=== PATIENT | male | born 1945 | race Hispanic/Latino ===

== ENCOUNTER 2020-10-19 19:07 | Emergency (ER) | payer SELFPAY ==
[~2020-10-19] VITALS: Ht 170.2 cm; Wt 81.2 kg
[2020-10-19 20:34] LABS: BASOPHILS % 0.3 % (0.0-1.0); EOSINOPHILS # (AUTO) 0.1 (0.0-0.4); EOSINOPHILS % 0.4 % (0.0-6.0); HEMATOCRIT 32.3 % (38.2-49.6); HEMOGLOBIN 10.3 g/dL (14.0-18.0); LYMPHOCYTES # (AUTO) 1.4 (1.0-3.2); LYMPHOCYTES % 10.3 % (18.0-39.1); MEAN CORPUSCULAR HEMOGLOBIN 24.8 pg (28-32); MEAN CORPUSCULAR HGB CONC 31.9 g/dL (31-35); MEAN CORPUSCULAR VOLUME 77.6 fL (81-99); MONOCYTES # (AUTO) 2.1 (0.2-0.8); MONOCYTES % 15.8 % (4.4-11.3); NEUTROPHILS # (AUTO) 9.8 (2.1-6.9); NEUTROPHILS % 72.5 % (38.7-80.0); PLATELET COUNT 509 x10e3/uL (140-360); RED BLOOD COUNT 4.16 x10e6/uL (4.3-5.7); RED CELL DISTRIBUTION WIDTH 14.8 % (11.7-14.4)
[2020-10-19 20:57] LABS: ALANINE AMINOTRANSFERASE 17 IU/L (0-55); ALBUMIN 2.6 g/dL (3.5-5.0); ALBUMIN/GLOBULIN RATIO 0.5 (0.8-2.0); ALKALINE PHOSPHATASE 100 IU/L (40-150); AMYLASE 21 U/L (25-125); ANION GAP 16.9 mmol/L (8-16); BLOOD UREA NITROGEN 12 mg/dL (7-26); BUN/CREATININE RATIO 15 (6-25); CARBON DIOXIDE 20 mmol/L (22-29); CHLORIDE 99 mmol/L (98-107); CREATININE, SERUM 0.82 mg/dL (0.72-1.25); EST GLOMERULAR FILTRATION RATE > 60 ML/MIN (60-); GLUCOSE 316 mg/dL (74-118); LIPASE 6 U/L (8-78); POTASSIUM 3.9 mmol/L (3.5-5.1); SODIUM 132 mmol/L (136-145)
[2020-10-19] MEDS ORDERED: SODIUM CHLORIDE 0.9% 50ML 50 ML ONE (21:21)
[2020-10-19] MEDS ORDERED: IOPAMIDOL 370 MG/ML 200 ML INFUS..BTL INJ ONE (21:21)
[2020-10-19] MEDS ORDERED: MORPHINE SULFATE INJ 2 MG/ML SYR IV STA (22:30)
[2020-10-19] MEDS ORDERED: CEFEPIME HCL 1 GM VIAL IV ONE (22:30)
[2020-10-19] MEDS ORDERED: ONDANSETRON HCL INJ 2MG/ML 2ML 2 MG/ML VIAL IV STA (22:30)
[2020-10-19] MEDS ORDERED: METRONIDAZOLE 500MG/NS 100ML 100 ML IV ONE (22:30)
[2020-10-19] MEDS ORDERED: INSULIN REGULAR, HUMAN 100 UNIT/1 ML 3ML VIAL SQ ONE (22:45)
== END 2020-10-20 01:10 | disposition other institution (70) ==
LOC: ER 20:09
DX: K61.1 Rectal abscess (principal); E11.65 Type 2 diabetes mellitus with hyperglycemia; Z20.822 Contact with and (suspected) exposure to COVID-19
CPT/HCPCS: 36415; 74177; 80053; 82150; 82948; 83690; 85025; 87040; 99284; J0692; J2270; J2405; Q9967; U0002

== ENCOUNTER 2022-04-22 12:18 | Inpatient (IN) | payer SELFPAY ==
[~2022-04-22] VITALS: Ht 170.2 cm; Wt 90.4 kg
[2022-04-22] VITALS (22 sets, daily range): BP systolic 92–118; BP diastolic 45–63
[2022-04-22] MEDS ORDERED: SODIUM CHLORIDE 0.9% 250ML 250 ML IV ONE (15:15)
[2022-04-22] MEDS ORDERED: ASPIRIN 81 MG CHEW TAB PO ONE (15:15)
[2022-04-22] MEDS: Morphine 4mg INJECTION 4 MG/ML INJ IV PRN (15:33)
[2022-04-22 15:58] LABS: BASOPHILS % 0.4 % (0.0-1.0); EOSINOPHILS # (AUTO) 0.1 (0.0-0.4); EOSINOPHILS % 1.5 % (0.0-6.0); LYMPHOCYTES % 21.1 % (18.0-39.1); MEAN CORPUSCULAR HEMOGLOBIN 23.7 pg (28-32); MEAN CORPUSCULAR HGB CONC 28.6 g/dL (31-35); MONOCYTES # (AUTO) 0.9 (0.2-0.8); MONOCYTES % 9.8 % (4.4-11.3); NEUTROPHILS # (AUTO) 6.3 (2.1-6.9); NEUTROPHILS % 66.9 % (38.7-80.0); PLATELET COUNT 359 x10e3/uL (140-360); RED BLOOD COUNT 1.94 x10e6/uL (4.3-5.7); RED CELL DISTRIBUTION WIDTH 15.5 % (11.7-14.4)
[2022-04-22 16:03] LABS: HEMOGLOBIN 4.6 g/dL (14.0-18.0)
[2022-04-22 16:04] LABS: HEMATOCRIT 16.1 % (38.2-49.6)
[2022-04-22 16:19] LABS: ALBUMIN 3.2 g/dL (3.5-5.0); ANION GAP 14.2 mmol/L (8-16); CALCIUM 8.4 mg/dL (8.4-10.2); CREATININE, SERUM 1.06 mg/dL (0.72-1.25); POTASSIUM 4.2 mmol/L (3.5-5.1)
[2022-04-22 16:25] LABS: CREATINE KINASE MB 1.9 ng/mL (0-5.0)
[2022-04-22] MEDS ORDERED: LIPITOR20 MG PO (16:39)
[2022-04-22] MEDS ORDERED: HUMULIN R100 UNIT/2 INJ (16:39)
[2022-04-22] MEDS ORDERED: METFORMIN HCL500 MG PO (16:39)
[2022-04-22] MEDS ORDERED: SODIUM CHLORIDE 0.9% 250ML 250 ML ONE (18:45)
[2022-04-22] MEDS ORDERED: DEXTROSE 50% SYRINGE 50 ML IV PRN (20:30)
[2022-04-22 20:45] LABS: CHOL/HDL RATIO 3.6 (3.9-4.7)
[2022-04-22] MEDS: INSULIN REGULAR, HUMAN 100 UNIT/1 ML SQ SCH (20:56)
[2022-04-22] MEDS: ATORVASTATIN 20 MG TAB PO SCH (20:58)
[2022-04-22 21:01] LABS: FERRITIN 6.02 ng/mL (21.81-274.66)
[2022-04-22] MEDS ORDERED: SODIUM CHLORIDE 0.9% 100 ML ONE (21:55)
[2022-04-22] MEDS ORDERED: IOPAMIDOL 370 MG/ML 100 ML INFUS..BTL INJ ONE (21:55)
[2022-04-22] MEDS: OCTREOTIDE ACETATE 500 MCG in SODIUM CHLORIDE 0.9% 250ML 249 ML IV SCH (23:36)
[2022-04-23] VITALS (39 sets, daily range): BP systolic 90–152; BP diastolic 43–81
[2022-04-23] MEDS ORDERED: CYANOCOBALAMIN INJ 1,000 MCG/ML VIAL IM ONE (00:30)
[2022-04-23 00:41] LABS: INR 1.03; PROTHROMBIN TIME 14.4 seconds (11.9-14.5)
[2022-04-23 00:42] LABS: PARTIAL THROMBOPLASTIN TIME 33.8 seconds (23.8-35.5)
[2022-04-23] MEDS ORDERED: DONNATAL/LIDOCAINE/MAALOX 30 ML SUSP PO STA (00:56)
[2022-04-23] MEDS: SODIUM CHLORIDE 0.9% 1000ML 1,000 ML IV SCH (03:40)
[2022-04-23 06:44] LABS: BASOPHILS % 0.4 % (0.0-1.0); EOSINOPHILS # (AUTO) 0.1 (0.0-0.4); EOSINOPHILS % 1.5 % (0.0-6.0); HEMOGLOBIN 7.3 g/dL (14.0-18.0); LYMPHOCYTES # (AUTO) 1.5 (1.0-3.2); LYMPHOCYTES % 18.5 % (18.0-39.1); MEAN CORPUSCULAR HEMOGLOBIN 25.8 pg (28-32); MEAN CORPUSCULAR HGB CONC 30.4 g/dL (31-35); MEAN CORPUSCULAR VOLUME 84.8 fL (81-99); MONOCYTES % 13.1 % (4.4-11.3); NEUTROPHILS # (AUTO) 5.3 (2.1-6.9); NEUTROPHILS % 66.1 % (38.7-80.0); PLATELET COUNT 335 x10e3/uL (140-360); RED BLOOD COUNT 2.83 x10e6/uL (4.3-5.7); RED CELL DISTRIBUTION WIDTH 14.6 % (11.7-14.4)
[2022-04-23] MEDS: INSULIN REGULAR, HUMAN 100 UNIT/1 ML SQ SCH ×4 (07:30→19:59)
[2022-04-23] MEDS: CYANOCOBALAMIN INJ 1,000 MCG/ML VIAL IM SCH (08:21)
[2022-04-23] MEDS: IRON SUCROSE 100 MG in SODIUM CHLORIDE 0.9% 100 ML IV SCH (09:09)
[2022-04-23] MEDS: OCTREOTIDE ACETATE 500 MCG in SODIUM CHLORIDE 0.9% 250ML 249 ML IV SCH ×2 (09:52→20:05)
[2022-04-23] MEDS: GUAIFENESIN/CODEINE 5 ML LIQD PO PRN ×2 (15:00→20:27)
[2022-04-23] MEDS: Morphine 4mg INJECTION 4 MG/ML INJ IV PRN ×2 (15:47→20:27)
[2022-04-23] MEDS: ATORVASTATIN 20 MG TAB PO SCH (20:05)
[2022-04-24] VITALS (31 sets, daily range): BP systolic 93–141; BP diastolic 48–81
[2022-04-24] MEDS: SODIUM CHLORIDE 0.9% 1000ML 1,000 ML IV SCH ×3 (00:35→17:15)
[2022-04-24] MEDS: Morphine 4mg INJECTION 4 MG/ML INJ IV PRN ×4 (01:14→20:58)
[2022-04-24] MEDS: OCTREOTIDE ACETATE 500 MCG in SODIUM CHLORIDE 0.9% 250ML 249 ML IV SCH (05:49)
[2022-04-24] MEDS: INSULIN REGULAR, HUMAN 100 UNIT/1 ML SQ SCH ×4 (07:30→21:06)
[2022-04-24] MEDS: CYANOCOBALAMIN INJ 1,000 MCG/ML VIAL IM SCH (10:34)
[2022-04-24] MEDS: IRON SUCROSE 100 MG in SODIUM CHLORIDE 0.9% 100 ML IV SCH (10:34)
[2022-04-24] MEDS: ONDANSETRON HCL INJ 2MG/ML 2ML 2 MG/ML VIAL IV PRN ×3 (10:34→19:56)
[2022-04-24] MEDS ORDERED: ALBUTEROL SULF 0.083% NEB SOLN 3 ML NEB NEB PRN (11:30)
[2022-04-24] MEDS: GUAIFENESIN/CODEINE 5 ML LIQD PO PRN ×2 (12:21→19:56)
[2022-04-24] MEDS: OSELTAMIVIR PHOSPHATE 75 MG CAP PO SCH ×2 (12:21→16:53)
[2022-04-24] MEDS ORDERED: PROPOFOL IV EMULSION 10 MG/ML 20 ML VIAL ONE (17:17)
[2022-04-24] MEDS ORDERED: LIDOCAINE HCL 2% LOCAL INJ 5 ML SDV VIAL INJ ONE (17:17)
[2022-04-24] MEDS: ATORVASTATIN 20 MG TAB PO SCH (19:56)
[2022-04-25] VITALS (20 sets, daily range): BP systolic 94–136; BP diastolic 46–109
[2022-04-25] MEDS: GUAIFENESIN/CODEINE 5 ML LIQD PO PRN (03:27)
[2022-04-25] MEDS: Morphine 4mg INJECTION 4 MG/ML INJ IV PRN (03:27)
[2022-04-25] MEDS: ONDANSETRON HCL INJ 2MG/ML 2ML 2 MG/ML VIAL IV PRN (03:27)
[2022-04-25] MEDS: INSULIN REGULAR, HUMAN 100 UNIT/1 ML SQ SCH ×4 (07:30→21:36)
[2022-04-25] MEDS: OSELTAMIVIR PHOSPHATE 75 MG CAP PO SCH ×2 (09:58→17:48)
[2022-04-25] MEDS: CYANOCOBALAMIN INJ 1,000 MCG/ML VIAL IM SCH (09:58)
[2022-04-25] MEDS ORDERED: SODIUM CHLORIDE 0.9% 100 ML ONE (10:02)
[2022-04-25 10:15] LABS: CALCIUM 7.8 mg/dL (8.4-10.2); CREATININE, SERUM 1.04 mg/dL (0.72-1.25)
[2022-04-25] MEDS: IRON SUCROSE 100 MG in SODIUM CHLORIDE 0.9% 100 ML IV SCH (10:18)
[2022-04-25] MEDS: Morphine 2mg Syringe 2 MG/ML SYR IV PRN ×2 (10:23→22:09)
[2022-04-25 10:57] LABS: BASOPHILS % 0.2 % (0.0-1.0); EOSINOPHILS # (AUTO) 0.3 (0.0-0.4); EOSINOPHILS % 3.8 % (0.0-6.0); HEMATOCRIT 23.6 % (38.2-49.6); LYMPHOCYTES # (AUTO) 0.9 (1.0-3.2); LYMPHOCYTES % 10.6 % (18.0-39.1); MEAN CORPUSCULAR HEMOGLOBIN 25.5 pg (28-32); MEAN CORPUSCULAR HGB CONC 28.8 g/dL (31-35); MEAN CORPUSCULAR VOLUME 88.4 fL (81-99); MONOCYTES # (AUTO) 1.1 (0.2-0.8); NEUTROPHILS % 71.8 % (38.7-80.0); PLATELET COUNT 319 x10e3/uL (140-360); RED BLOOD COUNT 2.67 x10e6/uL (4.3-5.7); RED CELL DISTRIBUTION WIDTH 16.3 % (11.7-14.4)
[2022-04-25 11:03] LABS: HEMOGLOBIN 6.8 g/dL (14.0-18.0)
[2022-04-25] MEDS ORDERED: SODIUM CHLORIDE 0.9% 250ML 250 ML ONE ×2 (11:59→16:17)
[2022-04-25] MEDS ORDERED: SODIUM CHLORIDE 0.9% 250ML 250 ML IV ONE (13:00)
[2022-04-25] MEDS: SODIUM CHLORIDE 0.9% 1000ML 1,000 ML IV SCH (13:26)
[2022-04-25] MEDS: SUCRALFATE 1 GM/10 ML SUSP PO SCH ×3 (13:26→21:35)
[2022-04-25] MEDS: ATORVASTATIN 40 MG TAB PO SCH (21:23)
[2022-04-26] VITALS (8 sets, daily range): BP systolic 116–138; BP diastolic 59–84
[2022-04-26] MEDS: GUAIFENESIN/CODEINE 5 ML LIQD PO PRN (01:18)
[2022-04-26 06:48] LABS: BASOPHILS % 0.2 % (0.0-1.0); EOSINOPHILS # (AUTO) 0.5 (0.0-0.4); HEMATOCRIT 25.3 % (38.2-49.6); HEMOGLOBIN 7.5 g/dL (14.0-18.0); LYMPHOCYTES # (AUTO) 1.3 (1.0-3.2); LYMPHOCYTES % 15.5 % (18.0-39.1); MEAN CORPUSCULAR HEMOGLOBIN 26.4 pg (28-32); MEAN CORPUSCULAR HGB CONC 29.6 g/dL (31-35); MEAN CORPUSCULAR VOLUME 89.1 fL (81-99); MONOCYTES # (AUTO) 1.2 (0.2-0.8); MONOCYTES % 13.6 % (4.4-11.3); NEUTROPHILS # (AUTO) 5.5 (2.1-6.9); NEUTROPHILS % 64.3 % (38.7-80.0); PLATELET COUNT 330 x10e3/uL (140-360); RED BLOOD COUNT 2.84 x10e6/uL (4.3-5.7); RED CELL DISTRIBUTION WIDTH 16.4 % (11.7-14.4)
[2022-04-26] MEDS: CYANOCOBALAMIN INJ 1,000 MCG/ML VIAL IM SCH (08:37)
[2022-04-26] MEDS: INSULIN REGULAR, HUMAN 100 UNIT/1 ML SQ SCH ×4 (08:37→21:52)
[2022-04-26] MEDS: SUCRALFATE 1 GM/10 ML SUSP PO SCH ×4 (08:37→21:23)
[2022-04-26] MEDS: Morphine 2mg Syringe 2 MG/ML SYR IV PRN ×2 (08:54→17:25)
[2022-04-26] MEDS: OSELTAMIVIR PHOSPHATE 75 MG CAP PO SCH ×2 (09:00→16:56)
[2022-04-26] MEDS: IRON SUCROSE 100 MG in SODIUM CHLORIDE 0.9% 100 ML IV SCH (09:00)
[2022-04-26] MEDS: SODIUM CHLORIDE 0.9% 1000ML 1,000 ML IV SCH (21:00)
[2022-04-26] MEDS: ATORVASTATIN 40 MG TAB PO SCH (21:23)
[2022-04-27] VITALS (7 sets, daily range): BP systolic 126–153; BP diastolic 60–82
[2022-04-27] MEDS: Morphine 2mg Syringe 2 MG/ML SYR IV PRN ×3 (00:29→18:02)
[2022-04-27] MEDS: INSULIN REGULAR, HUMAN 100 UNIT/1 ML SQ SCH ×4 (07:30→21:25)
[2022-04-27] MEDS: IRON SUCROSE 100 MG in SODIUM CHLORIDE 0.9% 100 ML IV SCH (09:44)
[2022-04-27] MEDS: OSELTAMIVIR PHOSPHATE 75 MG CAP PO SCH ×2 (09:47→17:51)
[2022-04-27] MEDS: SUCRALFATE 1 GM/10 ML SUSP PO SCH ×4 (09:47→21:17)
[2022-04-27] MEDS: CYANOCOBALAMIN INJ 1,000 MCG/ML VIAL IM SCH (09:48)
[2022-04-27] MEDS: SODIUM CHLORIDE 0.9% 1000ML 1,000 ML IV SCH (12:01)
[2022-04-27 13:57] LABS: HEMATOCRIT 27.2 % (38.2-49.6); HEMOGLOBIN 7.9 g/dL (14.0-18.0)
[2022-04-27] MEDS: ATORVASTATIN 40 MG TAB PO SCH (21:18)
[2022-04-28] VITALS: BP 147/74
[2022-04-28 04:00] VITALS: BP 145/72
[2022-04-28] MEDS: SODIUM CHLORIDE 0.9% 1000ML 1,000 ML IV SCH (04:21)
[2022-04-28 08:05] VITALS: BP 141/74
[2022-04-28 08:20] VITALS: BP 141/74
[2022-04-28] MEDS: OSELTAMIVIR PHOSPHATE 75 MG CAP PO SCH (10:03)
[2022-04-28] MEDS: CYANOCOBALAMIN INJ 1,000 MCG/ML VIAL IM SCH (10:03)
[2022-04-28] MEDS: SUCRALFATE 1 GM/10 ML SUSP PO SCH (10:03)
[2022-04-28] MEDS: INSULIN REGULAR, HUMAN 100 UNIT/1 ML SQ SCH (10:05)
[2022-04-28] MEDS: GUAIFENESIN/CODEINE 5 ML LIQD PO PRN (10:15)
== END 2022-04-28 11:47 | disposition home or self-care (01) | DRG 377 ==
LOC: ICU 12:18 → MED/SURG3 04-25 15:30
PROVIDERS: ADMIT Internal Medicine; ATTEND Internal Medicine
PROC: 02HV33Z Insertion of Infusion Device into Superior Vena Cava, Percutaneous Approach (ICD-10-PCS; 2022-04-22)
PROC: 30243N1 Transfusion of Nonautologous Red Blood Cells into Central Vein, Percutaneous Approach (ICD-10-PCS; 2022-04-22)
PROC: 0DB78ZX Excision of Stomach, Pylorus, Via Natural or Artificial Opening Endoscopic, Diagnostic (ICD-10-PCS; 2022-04-24)
PROC: 0DB68ZX Excision of Stomach, Via Natural or Artificial Opening Endoscopic, Diagnostic (ICD-10-PCS; principal; 2022-04-24 07:17)
DX: K29.71 Gastritis, unspecified, with bleeding (principal); J10.01 Influenza due to other identified influenza virus with the same other identified influenza virus pneumonia; J96.01 Acute respiratory failure with hypoxia; D62 Acute posthemorrhagic anemia; K26.4 Chronic or unspecified duodenal ulcer with hemorrhage; K20.91 Esophagitis, unspecified with bleeding; K20.90 Esophagitis, unspecified without bleeding; K44.9 Diaphragmatic hernia without obstruction or gangrene; Z20.822 Contact with and (suspected) exposure to COVID-19; E11.9 Type 2 diabetes mellitus without complications; Z87.11 Personal history of peptic ulcer disease; D50.9 Iron deficiency anemia, unspecified; E53.8 Deficiency of other specified B group vitamins
CPT/HCPCS: 36415; 36569; 43239; 71045; 74174; 80048; 80053; 80061; 82550; 82553; 82607; 82728; 82746; 82948; 83036; 83540; 84466; 84484; 85014; 85018; 85025; 85610; 85730; 86850; 86900; 86920; 87299; 87400; 87491; 88304; 88305; 88312; 88342; 94799; 96372; J0456; J0696; J1756; J1817; J2001; J2270; J2353; J2405; J3420; J7030; J7050; P9016; Q9967